=== PATIENT | male | born 1965 | race Caucasian/White ===

== ENCOUNTER 2016-06-01 09:17 | Emergency (ER) | payer BC ==
[~2016-06-01] VITALS: Ht 175.3 cm; Wt 83.9 kg
--- NOTE | ~2016-06-01 | EKG ---
[address] [address] [place] [address] ELECTROCARDIOGRAM REPORT Name: YUNG FRIED Room #: DEP ASHLEY Dao#: [id number] Admission: 06/01/16 Attend Phys: Discharge: 06/01/16 Date of : 61 Report #: [id number] THIS REPORT FOR: //name// [facility] ED Test Date: 2016-06-01 Test Time: 09:21:57 Pat Name: YUNG FRIED Department: Room: Gender: Machine Operator Packaging: Luis Carlos CHARLES : 1965 Requested By: Gio Hameed Order Number: [id number] MD: Wilfred Birch Measurements Intervals [place] Rate: 73 P: 42 MO: 157 QRS: -6 QRSD: 100 T: 13 QT: 362 QTc: 399 Interpretive Statements Sinus rhythm Ventricular premature complex Left ventricular hypertrophy Baseline wander in lead(s) V1 No previous ECG available for comparison Electronically Signed On 06-01-2016 14:17:03 HOUSEKEEPING MANAGER by Wilfred Birch [email or web address] <ELECTRONICALLY SIGNED> By: Wilfred Birch MD 06/01/16 1417 0921 0 Wilfred Birch MD /YAZMIN
[2016-06-01 09:51] LABS: HEMATOCRIT 44.4 % (42.0-52.0); HEMOGLOBIN 15.4 gm/dL (14.0-18.0); MANUAL DIFF YES; MCH 31.8 pg (26.0-34.0); MCHC 34.7 % (28.0-37.0); MCV 91.6 fL (80.0-100.0); PLATELET COUNT 296 thou/uL (150-400); RBC 4.85 mil/uL (4.50-6.00); RDW 13.6 % (10.5-14.5); WBC 8.3 thou/uL (4.0-11.0)
[2016-06-01 09:55] LABS: ANION GAP 9 mmol/L (7-16); BUN 19 mg/dL (7-18); CALCIUM 8.5 mg/dL (8.5-10.1); CHLORIDE 103 mmol/L (98-107); CO2 27 mmol/L (21-32); CREATININE 1.2 mg/dL (0.6-1.3); GLUCOSE 129 mg/dL (70-99); POTASSIUM 3.6 mmol/L (3.5-5.1); SODIUM 139 mmol/L (136-145)
[2016-06-01 10:04] LABS: ALBUMIN 3.6 g/dL (3.4-5.0); ALKALINE PHOSPHATASE 80 U/L (46-116); SGOT 9 U/L (15-37); SGPT 25 U/L (30-65); TOTAL BILIRUBIN 0.6 mg/dL (<0.1-1.0); TOTAL PROTEIN 7.2 g/dL (6.4-8.2); TROPONIN-I < 0.04 ng/mL (<0.04-0.07)
[2016-06-01 10:14] LABS: ABSOLUTE NEUTROPHILS 4.1 thou/uL (1.4-8.2); ATYPICAL LYMPHS 6 %; PLATELET ESTIMATE NORMAL; TOTAL CELL COUNT 100
[2016-06-01] MEDS ORDERED: CARAFATE 1 GM TA1 G1 PO (11:29)
[2016-06-01] MEDS ORDERED: PANTOPRAZOLE SO40 M1 PO (11:29)
[2016-06-01 11:54] VITALS: BP 114/69
[2016-07-20] MEDS ORDERED: MOBIC15 MG PO (15:41)
== END 2016-06-01 11:56 | disposition home or self-care (01) ==
LOC: ER 09:17
PROVIDERS: Emergency Medicine
DX: R10.13 Epigastric pain (principal); F10.99 Alcohol use, unspecified with unspecified alcohol-induced disorder